=== PATIENT | female | born 1960 | race Caucasian/White ===

== ENCOUNTER → 2017-01-26 | Day surgery (SDC) | payer OTHER ==
[~2017-01-26] VITALS: Ht 170.1 cm; Wt 86.2 kg
[~2017-01-26] MED LIST: ANAPROX DS550 MG PO; CIPRO; CIPROFLOXACIN500 MG PO; DICLOFENAC POTA50 MG PO; DURAGESIC12.5 MCG/H TD; FLEXERIL10 MG PO; INHALER; LISINOPRIL5 MG PO; MULTI VITAMINS1 TAB PO; NOVAPLUS FE TD; OXYCODONE HCL5 M1 PO; PROVENTIL HFA6.7 GM INH; PROZAC; SOMA350 MG PO; TOPAM; TOPAMAX2 MG PO; TOPIRAMATE100 M1 PO; VICODIN 5/500 505 MG PO; WELLBUTRIN SR150 MG PO; ZANTAC150 MG PO; [UNRECOGNIZED DRUG - OTHER] INH
--- NOTE | ~2017-01-26 | O ---
[place], [place] OPERATIVE NOTE NAME: CARLOS MUÑOZ UNIT #: [id number] ROOM: DOCTOR: HILL LUCERO MD BIRTHDATE: [birth year] DOS: 01/26/2017 INDICATION: A 56-year-old patient with chief complaint of colonic screening, undergoing investigation. ALLERGIES: No known medication. FAMILY HISTORY: Mother with colonic carcinoma. PAST SURGICAL HISTORY: Breast lumpectomy, oophorectomy, right-sided bladder lift. Breast lumpectomy was no carcinoma. PAST MEDICAL HISTORY: Hypertension, hypercholesterolemia, edema, depression. Taking Soma and Percocet for back pain. SOCIAL HISTORY: Smoker, nonalcohol consumer. PROCEDURE: Today's procedure part of investigation is colonoscopy plus polypectomy x 2. PREMEDICATION: Versed and Diprivan. SCOPE: Olympus folding colonoscope 10L video. REPORT: After putting the patient in left lateral position and application of lubricant to rectal pouch and digital examination, scope was introduced. Thereafter, under direct visualization, advanced through the length of colon without difficulty. Base of the cecum explored, appendiceal orifice identified, ileocecal valve was defined. The scope was gradually withdrawn from ascending, transverse, descending colon back to the sigmoid colon. Two sessile polypoid lesions, piecemeal polypectomy removed. Air was suctioned out. The patient was extubated, tolerated procedure well. IMPRESSION: Sessile colonic polyp, sigmoid colon, status post piecemeal polypectomy. PLAN: High-fiber fruit diet. ACTIVITY: Ad tyson. FOLLOWUP: Follow up routinely with you in office, p.r.n. visit with us in [facility]. Thank you very much indeed. [place], [place] OPERATIVE NOTE NAME: CARLOS MUÑOZ UNIT #: [id number] ROOM: DOCTOR: HILL LUCERO MD BIRTHDATE: [birth year] HILL LUCERO MD CM:OPRECORD:OPERATIVE NOTE [id number] MALIKA LUCERO MD 01/26/17 1503 interface
[2017-01-26 11:45] VITALS: BP 134/86
[2017-01-26 12:24] VITALS: BP 123/79
[2017-01-26 12:36] VITALS: BP 123/79
[2017-01-26 12:40] VITALS: BP 123/79
== END | disposition home or self-care (01) ==
LOC: SDC 01-24 08:45
DX: Z12.11 Encounter for screening for malignant neoplasm of colon (principal); K63.5 Polyp of colon; I10 Essential (primary) hypertension; E78.00 Pure hypercholesterolemia, unspecified; F32.9 Major depressive disorder, single episode, unspecified; F17.210 Nicotine dependence, cigarettes, uncomplicated; Z80.0 Family history of malignant neoplasm of digestive organs; Z98.890 Other specified postprocedural states; J45.909 Unspecified asthma, uncomplicated; Z79.899 Other long term (current) drug therapy

== ENCOUNTER → 2017-06-14 | Outpatient (CLI) | payer OTHER | END | disposition home or self-care (01) | LOC: MAMMO 06-07 09:30 | DX: Z12.31 Encounter for screening mammogram for malignant neoplasm of breast (principal); Z98.82 Breast implant status ==

== ENCOUNTER 2017-08-12 11:03 | Emergency (ER) | payer OTHER ==
[~2017-08-12] VITALS: Wt 79.4 kg
[2017-08-12 11:28] LABS: BILIRUBIN 1+ (NEGATIVE); BLOOD 2+ (NEGATIVE); CLARITY SL CLOUDY (CLEAR); COLOR YELLOW (YELLOW); GLUCOSE NEGATIVE (NEGATIVE); KETONE NEGATIVE (NEGATIVE); NITRITE NEGATIVE (NEGATIVE); SPECIFIC GRAVITY >= 1.030 (1.005-1.030); UROBILINOGEN 0.2 E.U./dl (0.2-1.0)
[2017-08-12 11:37] LABS: LEUKO ESTERASE TRACE (NEGATIVE)
[2017-08-12 11:38] LABS: BACTERIA 2+; MUCOUS 1+
[2017-08-12 12:02] LABS: BASO % 0.3 % (0.0-1.0); EOS # 0.4 10*3/uL (0.0-0.4); EOS % 3.5 % (1.0-4.0); HEMATOCRIT 43.7 % (37.0-47.0); HEMOGLOBIN 14.7 g/dl (12.0-16.0); LYMPH # 0.5 10*3/uL (1.3-4.4); LYMPH % 4.7 % (27.0-41.0); MEAN CORPUSCULAR HGB 30.6 pg (27.0-31.0); MEAN CORPUSCULAR HGB CONC 33.6 g/dl (33.0-37.0); MEAN PLATELET VOLUME 10.6 fl (9.6-12.3); MONO # 0.4 10*3/uL (0.1-1.0); MONO % 3.6 % (3.0-9.0); NEUT % 87.6 % (47.0-73.0); PLATELET COUNT AUTOMATED 176 10*3/uL (130-400); RED CELL DISTRI WIDTH 11.9 % (0-14.5); WHITE BLOOD COUNT 10.3 10*3/uL (4.8-10.8)
[2017-08-12 12:18] LABS: ALBUMIN 3.8 gm/dl (3.1-4.5); ALKALINE PHOSPHATASE 90 U/L (45-117); BUN 18 mg/dl (7-24); CHLORIDE 108 mmol/L (98-107); CREATININE 0.71 mg/dL (0.55-1.02); LIPASE 161 U/L (73-393); POTASSIUM 3.5 mmol/L (3.5-5.1); SGOT/AST 26 IU/L (3-35); SGPT/ALT 28 U/L (12-78); SODIUM 140 mmol/L (136-145); TOTAL PROTEIN 7.5 gm/dL (6.4-8.2)
[2017-08-12] MEDS ORDERED: ZOFRAN ODT4 MG SL (13:33)
== END 2017-08-12 13:48 | disposition home or self-care (01) ==
LOC: ED 11:03
PROVIDERS: Physician Assistant
DX: K52.9 Noninfective gastroenteritis and colitis, unspecified (principal); Z79.899 Other long term (current) drug therapy

== ENCOUNTER 2018-03-01 06:42 | Emergency (ER) | payer OTHER ==
[~2018-03-01] VITALS: Ht 170.1 cm; Wt 89.8 kg
[~2018-03-01 06:42] MED LIST changes: +ZOFRAN ODT4 MG SL
[2018-03-01 07:05] LABS: BILIRUBIN NEGATIVE (NEGATIVE); BLOOD TRACE-INTACT (NEGATIVE); CLARITY SL CLOUDY (CLEAR); COLOR YELLOW (YELLOW); GLUCOSE NEGATIVE (NEGATIVE); KETONE NEGATIVE (NEGATIVE); LEUKO ESTERASE 1+ (NEGATIVE); NITRITE NEGATIVE (NEGATIVE); UROBILINOGEN 0.2 E.U./dl (0.2-1.0)
[2018-03-01 07:21] LABS: BACTERIA 2+
== END 2018-03-01 08:19 | disposition left against medical advice (07) ==
LOC: ED 06:42
PROVIDERS: Emergency Medicine Emergency Medical Services
DX: R33.9 Retention of urine, unspecified (principal); Z98.890 Other specified postprocedural states; Z79.899 Other long term (current) drug therapy; Z53.21 Procedure and treatment not carried out due to patient leaving prior to being seen by health care provider

== ENCOUNTER → 2018-07-29 | Outpatient (CLI) | payer OTHER | END | disposition home or self-care (01) | LOC: US 14:28 | DX: N76.0 Acute vaginitis (principal); N94.10 Unspecified dyspareunia ==

== ENCOUNTER → 2018-09-04 | Outpatient (CLI) | payer OTHER ==
[2018-09-04 14:15] LABS: BILIRUBIN NEGATIVE (NEGATIVE); BLOOD 2+ (NEGATIVE); CLARITY SL CLOUDY (CLEAR); COLOR YELLOW (YELLOW); GLUCOSE NEGATIVE (NEGATIVE); KETONE NEGATIVE (NEGATIVE); LEUKO ESTERASE NEGATIVE (NEGATIVE); NITRITE NEGATIVE (NEGATIVE); SPECIFIC GRAVITY 1.025 (1.005-1.030); UROBILINOGEN 0.2 E.U./dl (0.2-1.0)
[2018-09-04 14:29] LABS: BACTERIA 2+; RBC 16-20 rbc/hpf (0-2)
== END | disposition home or self-care (01) ==
LOC: LAB 13:35
PROVIDERS: Obstetrics & Gynecology
DX: R30.0 Dysuria (principal)

== ENCOUNTER → 2018-12-02 | Outpatient (CLI) | payer OTHER | END | disposition home or self-care (01) | LOC: ORTHO 05:02 | DX: M19.041 Primary osteoarthritis, right hand (principal) ==

== ENCOUNTER → 2019-12-04 | Outpatient (CLI) | payer OTHER ==
[2019-12-04 11:51] LABS: FREE T4 1.21 ng/dl (0.76-1.46)
[2019-12-04 11:55] LABS: THYROID STIM HORMONE (HS) 1.24 uIU/ml (0.358-4.75)
== END | disposition home or self-care (01) ==
LOC: LAB 11:00
PROVIDERS: ATTEND Internal Medicine
DX: E53.8 Deficiency of other specified B group vitamins (principal); R26.89 Other abnormalities of gait and mobility

== ENCOUNTER → 2021-02-04 | Outpatient (CLI) | payer OTHER | END | disposition home or self-care (01) | LOC: US 10:55 | PROVIDERS: ATTEND Internal Medicine Nephrology | DX: N83.202 Unspecified ovarian cyst, left side (principal); N94.10 Unspecified dyspareunia; Z90.721 Acquired absence of ovaries, unilateral ==

== ENCOUNTER 2021-05-08 13:06 | Emergency (ER) | payer OTHER ==
[~2021-05-08] VITALS: Wt 82.1 kg
[2021-05-08 13:45] LABS: BASO % 0.5 % (0.0-1.0); EOS # 0.4 10*3/uL (0.0-0.4); EOS % 5.2 % (1.0-4.0); HEMATOCRIT 40.9 % (37.0-47.0); LYMPH # 2.3 10*3/uL (1.3-4.4); LYMPH % 28.2 % (27.0-41.0); MEAN CORPUSCULAR HGB 30.9 pg (27.0-31.0); MEAN CORPUSCULAR HGB CONC 33.3 g/dl (33.0-37.0); MEAN PLATELET VOLUME 10.6 fl (9.6-12.3); MONO # 0.3 10*3/uL (0.1-1.0); MONO % 3.8 % (3.0-9.0); NEUT % 61.9 % (47.0-73.0); PLATELET COUNT AUTOMATED 243 10*3/uL (130-400); RED CELL DISTRI WIDTH 12.2 % (0-14.5); WHITE BLOOD COUNT 8.1 10*3/uL (4.8-10.8)
[2021-05-08 14:00] LABS: ALKALINE PHOSPHATASE 85 U/L (45-117); BUN 20 mg/dl (7-24); CHLORIDE 110 mmol/L (98-107); CREATININE 0.67 mg/dL (0.55-1.02); LIPASE 257 U/L (73-393); POTASSIUM 3.4 mmol/L (3.5-5.1); SGOT/AST 27 IU/L (3-35); SGPT/ALT 26 U/L (12-78); SODIUM 141 mmol/L (136-145); TOTAL PROTEIN 7.9 gm/dL (6.4-8.2)
[2021-05-08] MEDS ORDERED: PRILOSEC20 M1 PO (16:18)
== END 2021-05-08 16:00 | disposition home or self-care (01) ==
LOC: ED 13:06
PROVIDERS: Emergency Medicine
DX: R10.13 Epigastric pain (principal); Z79.899 Other long term (current) drug therapy

== ENCOUNTER → 2021-11-28 | Outpatient (CLI) | payer OTHER ==
[~2021-11-28] MED LIST changes: +PRILOSEC20 M1 PO
== END | disposition home or self-care (01) ==
LOC: RAD 10:27
PROVIDERS: ATTEND Internal Medicine
DX: M25.751 Osteophyte, right hip (principal); M25.752 Osteophyte, left hip

== ENCOUNTER → 2022-08-10 | Outpatient (CLI) | payer OTHER | LOC: MAMMO 07-27 09:00 | PROVIDERS: ATTEND Internal Medicine | DX: R92.1 Mammographic calcification found on diagnostic imaging of breast (principal); Z98.82 Breast implant status ==

== ENCOUNTER → 2022-10-21 | Outpatient (CLI) | payer OTHER | END | disposition home or self-care (01) | LOC: LAB 08:56 | PROVIDERS: ATTEND Internal Medicine | DX: M13.0 Polyarthritis, unspecified (principal) ==

== ENCOUNTER → 2023-06-18 | Outpatient (CLI) | payer OTHER | END | disposition home or self-care (01) | LOC: RAD 15:13 | PROVIDERS: ATTEND Internal Medicine | DX: S00.83XA Contusion of other part of head, initial encounter (principal); X58.XXXA Exposure to other specified factors, initial encounter; Y93.89 Activity, other specified; Y92.89 Other specified places as the place of occurrence of the external cause; Y99.8 Other external cause status ==

== ENCOUNTER → 2023-10-01 | Outpatient (CLI) | payer OTHER | END | disposition home or self-care (01) | LOC: RAD 11:14 | PROVIDERS: ATTEND Internal Medicine | DX: M17.11 Unilateral primary osteoarthritis, right knee (principal); M25.461 Effusion, right knee ==

== ENCOUNTER → 2023-11-15 | Outpatient (CLI) | payer OTHER | END | disposition home or self-care (01) | LOC: LAB 12:34 | PROVIDERS: ATTEND Internal Medicine | DX: R19.7 Diarrhea, unspecified (principal) ==

== ENCOUNTER → 2024-03-21 | Outpatient (CLI) | payer OTHER | END | disposition home or self-care (01) | LOC: ORTHO 02:02 | PROVIDERS: ATTEND Orthopaedic Surgery | DX: M79.89 Other specified soft tissue disorders (principal); M25.521 Pain in right elbow ==